=== PATIENT | male | born 1990 | race Caucasian/White ===

== ENCOUNTER → 2016-06-10 | Outpatient (CLI) | payer OTHER ==
--- NOTE | 2016-06-10 08:56 | REP ---
CT of the chest without IV contrast: Comparison is an ultrasound of the left axilla dated 02/28/2016. On the comparison ultrasound, there was an ovoid 3.5 x 2.8 x 1.3 cm solid mass in the left axilla. By CT today a cutaneous marker is placed in the left axilla identifying the location of the mass. There is no mass in the left axilla on the CT scan today. There are a few normal-size left axillary nodes, similar to the nodes in the right axilla. There is mild induration of the subcutaneous fat in the left axilla in this location, however, this is similar to findings in the right axilla. No breast masses are identified. There is no adenopathy at the thoracic inlet. There is no mediastinal lymph node enlargement. In the absence of IV contrast the study is insensitive for hilar lymph node enlargement. There are no pulmonary masses or nodules. There are no acute infiltrates or pleural effusions. The unenhanced thoracic aorta is unremarkable. Cardiac size is normal. There is no pericardial effusion. The visualized upper abdominal contents are unremarkable except for hepato steatosis. The adrenals are unremarkable. Impression: Essentially negative CT scan of the chest except for hepato steatosis. There is no axillary mass, particularly on the left. No breast masses are identified. No mediastinal adenopathy. No infiltrates or effusions. Signed by Paresh Perez MD 06/10/2016 08:48 A
== END ==
LOC: M RAD 06:52
PROVIDERS: ATTEND Physician Assistant Surgical
DX: K76.0 Fatty (change of) liver, not elsewhere classified (principal)